=== PATIENT | male | born 1995 | race Two or more races ===

== ENCOUNTER 2023-05-08 22:16 | Emergency (ER) | payer SELFPAY ==
[~2023-05-08] VITALS: Ht 167.6 cm; Wt 79.5 kg
[2023-05-08 22:34] LABS: Basophils # (auto) 0.1 10 ^3/uL (0-0.2); Basophils % (auto) 0.6 % (0.0-2.0); Eosinophils # (auto) 0.1 10 ^3/uL (0-0.8); Eosinophils % (auto) 1.4 % (0.0-7.0); Hematocrit 46.1 % (41.0-53.0); Hemoglobin 15.6 g/dL (13.5-17.5); Lymphocytes # (auto) 3.4 10 ^3/uL (0.4-5.4); Lymphocytes % (auto) 36.2 % (10.0-50.0); Mean Corpuscular Hemoglobin 29.5 pg (28.0-32.0); Mean Corpuscular Hgb Conc. 33.8 g/dL (32.0-36.0); Mean Corpuscular Volume 87.5 fL (80.0-100.0); Monocytes # (auto) 0.7 10 ^3/uL (0-1.3); Monocytes % (auto) 7.8 % (0.0-12.0); Nucleated Red Blood Cells % 0.1 %; Red Blood Cells 5.27 10^6/uL (4.5-5.90); Red Cell Distribution Width 14.3 % (11.8-14.3); White Blood Cell 9.2 10^3/uL (4.4-10.8)
[2023-05-08 22:52] LABS: Albumin 3.8 g/dL (3.4-5.0); Calcium 8.9 mg/dL (8.5-10.1); Magnesium 2.4 mg/dL (1.6-2.6); Potassium 3.2 mmol/L (3.5-5.1)
[2023-05-08 22:54] LABS: BUN/Creatinine Ratio 13.5 (10.0-20.0); Bilirubin, Total 0.5 mg/dL (0.2-1.0)
[2023-05-08 22:55] LABS: INR 0.99 (0.9-1.15); Partial Thromboplastin Time 27.8 SEC (24.5-34.5); Prothrombin Time 10.4 sec (9.3-11.8)
[2023-05-09] MEDS ORDERED: POTASSIUM EFFERVESENT TAB 25 MEQ PO ONE (03:15)
[2023-05-09 03:20] VITALS: BP 130/90; PULSE 65; RESP 16; TEMP 98.2; O2SAT 98
== END 2023-05-09 03:29 | disposition home or self-care (01) ==
LOC: ER 22:18
DX: R07.89 Other chest pain (principal); E87.6 Hypokalemia
CPT/HCPCS: 36415; 71045; 80053; 83735; 83880; 84484; 85025; 85610; 85730; 93005

== ENCOUNTER 2023-12-03 04:16 | Inpatient (IN) | payer SELFPAY ==
[~2023-12-03] VITALS: Ht 167.6 cm; Wt 86.5 kg
[2023-12-03 04:42] VITALS: PULSE 130; RESP 16; O2SAT 98
[2023-12-03 05:05] LABS: Basophils # (auto) 0 10 ^3/uL (0-0.2); Basophils % (auto) 0.5 % (0.0-2.0); Eosinophils # (auto) 0 10 ^3/uL (0-0.8); Lymphocytes # (auto) 1.9 10 ^3/uL (0.4-5.4); Monocytes # (auto) 0.3 10 ^3/uL (0-1.3); Neutrophils # (auto) 4.2 10 ^3/uL (1.6-8.6); Red Cell Distribution Width 13.6 % (11.8-14.3)
[2023-12-03 05:07] LABS: Eosinophils % (auto) 0.4 % (0.0-7.0); Hematocrit 51.8 % (41.0-53.0); Hemoglobin 17.4 g/dL (13.5-17.5); Lymphocytes % (auto) 29.8 % (10.0-50.0); Mean Corpuscular Hemoglobin 28.6 pg (28.0-32.0); Mean Corpuscular Hgb Conc. 33.5 g/dL (32.0-36.0); Mean Corpuscular Volume 85.3 fL (80.0-100.0); Neutrophils % (auto) 64.3 % (37.0-80.0); Nucleated Red Blood Cells % 0.2 %; Red Blood Cells 6.07 10^6/uL (4.5-5.90); White Blood Cell 6.5 10^3/uL (4.4-10.8)
[2023-12-03 05:16] LABS: Amphetamine Screen, Urine Pos (NEGATIVE); Barbiturate Scree,Urine Neg (NEGATIVE); Benzodiazephine Screen, Urine Neg (NEGATIVE); Cocaine Screen, Urine Pos (NEGATIVE); Opiate Scree,Urine Neg (NEGATIVE)
[2023-12-03 05:17] LABS: Cannabinoid Screen, Urine Neg (NEGATIVE); Phencyclidine Screen, Urine Neg (NEGATIVE); Urine Bacteria NONE SEEN /hpf (None Seen); Urine Blood Negative /uL (Negative); Urine Clarity Clear (Clear); Urine Color Colorless (Yellow); Urine Protein, UAD Negative (Negative); Urine Urobilinogen Normal (Negative); Urine WBC <1 /hpf (0 - 3)
[2023-12-03] MEDS: NALOXONE HCL 0.4 MG/ML VIAL IV ONE (05:17)
[2023-12-03] MEDS: NALOXONE HCL 0.4 MG/ML VIAL ONE (05:18)
[2023-12-03 05:20] LABS: Alanine Aminotransferase 58 U/L (7-40); Albumin 5.3 g/dL (3.2-4.8); Alkaline Phosphatase 98 U/L (46-116); Anion Gap 13 (5-15); Aspartate Aminotransferase 29 U/L (13-40); BUN/Creatinine Ratio 8.3 (10.0-20.0); Bilirubin, Total 0.6 mg/dL (0.2-1.0); Blood Alcohol 133.7 mg/dL (<10); Blood Urea Nitrogen 8 mg/dL (9-23); Calcium 9.9 mg/dL (8.5-10.1); Carbon Dioxide 22 mmol/L (20-30); Chloride 103 mmol/L (98-107); Glucose 188 mg/dL (74-106); Potassium 2.5 mmol/L (3.5-5.1); Sodium 138 mmol/L (136-145)
[2023-12-03 05:21] LABS: Total Protein 8.5 g/dL (5.7-8.2)
[2023-12-03] MEDS: SODIUM CHLORIDE 0.9% 1,000 ML IV ONE ×2 (06:06→06:45)
[2023-12-03] MEDS: POTASSIUM EFFERVESENT TAB 25 MEQ PO ONE (06:41)
[2023-12-03] MEDS: POTASSIUM CHL 20MEQ/100ML 100 ML IV SCH (06:45)
[2023-12-03] MEDS: LORazepam 2MG/ML-1ML VIAL IV ONE (08:41)
[2023-12-03 08:49] VITALS: PULSE 140; RESP 13; O2SAT 98
[2023-12-03] MEDS ORDERED: ACETAMINOPHEN 325 MG TAB PO PRN (09:45)
[2023-12-03] MEDS ORDERED: DOCUSATE SOD 100 MG CAP PO PRN (09:45)
[2023-12-03] MEDS ORDERED: NITROGLYCERIN 0.4 MG SL TAB SL PRN (09:45)
[2023-12-03] MEDS ORDERED: ONDANSETRON HCL 4 MG/2 ML VIAL IV PRN (09:45)
[2023-12-03] MEDS ORDERED: MORPHINE SULFATE INJ 2 MG/ml SYRG IV PRN (09:45)
[2023-12-03] MEDS ORDERED: DEXTROSE (50%) 50ML SYRG IV PRN (09:45)
[2023-12-03] MEDS ORDERED: LORazepam 2MG/ML-1ML VIAL IV PRN (09:45)
[2023-12-03] MEDS: SODIUM CHLORIDE 0.9% 1,000 ML IV SCH (09:56)
[2023-12-03] MEDS: FOLIC ACID 1 MG TAB PO SCH (10:07)
[2023-12-03] MEDS: MULTIPLE VITAMIN TAB PO SCH (10:07)
[2023-12-03] MEDS: ASPirin-EC 81 mg tab PO SCH (10:07)
[2023-12-03] MEDS: THIAMINE HCL 100 MG TAB PO SCH (10:07)
[2023-12-03] MEDS: ACCU-CHEK COMFORT CURVE STRIP VI SCH (11:36)
[2023-12-03] MEDS: InsuLIN REG 1unit/0.01ml Soln (100units/ml) SC SCH (11:46)
[2023-12-03 19:30] VITALS: PULSE 113; RESP 19; O2SAT 98
[2023-12-03 22:00] VITALS: BP 124/74; PULSE 106; RESP 14; TEMP 99.5; O2SAT 96
[2023-12-03 22:10] VITALS: PULSE 88; RESP 17; O2SAT 97
[2023-12-03] MEDS: ATORVASTATIN 20 MG TAB PO SCH (23:03)
[2023-12-04 04:48] VITALS: BP 123/74; PULSE 78; RESP 16; TEMP 98.3; O2SAT 98
[2023-12-04 05:07] LABS: Chloride 108 mmol/L (98-107); Potassium 3.8 mmol/L (3.5-5.1); Sodium 140 mmol/L (136-145)
[2023-12-04 05:08] LABS: Anion Gap 6 (5-15); Carbon Dioxide 26 mmol/L (20-30)
[2023-12-04 05:13] LABS: BUN/Creatinine Ratio 9.6 (10.0-20.0); Blood Urea Nitrogen 8 mg/dL (9-23); Glucose 94 mg/dL (74-106); Triglycerides 138 mg/dL (< 150)
[2023-12-04 05:14] LABS: LDL Cholesterol 165 mg/dL (< 100)
[2023-12-04 05:15] LABS: Cholesterol 220 mg/dL (< 200); HDL Cholesterol 45 mg/dL (40-59)
[2023-12-04 08:00] VITALS: PULSE 65
[2023-12-04 09:00] VITALS: BP 109/74; PULSE 68; RESP 18; TEMP 97.8; O2SAT 100
[2023-12-04 10:44] LABS: Free T3 4.14 pg/mL (2.3-4.2); Free T4 (Free Thyroxine) 1.45 ng/dL (0.89-1.76)
[2023-12-04 12:36] VITALS: BP 109/65; PULSE 78; RESP 20; TEMP 98.5; O2SAT 96
[2023-12-04 17:00] VITALS: BP 100/61; PULSE 68; RESP 18; TEMP 98; O2SAT 99
== END 2023-12-04 17:15 | disposition home or self-care (01) | DRG 313 ==
LOC: ER 04:16 → TELE 09:44 → TELE-CENTR 21:35
PROVIDERS: ADMIT Internal Medicine Pulmonary Disease; ATTEND Internal Medicine Pulmonary Disease
DX: R07.89 Other chest pain (principal); R00.2 Palpitations; F15.10 Other stimulant abuse, uncomplicated; E87.6 Hypokalemia; E78.5 Hyperlipidemia, unspecified; F10.10 Alcohol abuse, uncomplicated; R73.03 Prediabetes; F14.120 Cocaine abuse with intoxication, uncomplicated; F15.120 Other stimulant abuse with intoxication, uncomplicated; E66.9 Obesity, unspecified; Z68.30 Body mass index [BMI] 30.0-30.9, adult
CPT/HCPCS: 36415; 70450; 71045; 80048; 80053; 80061; 80307; 80320; 81001; 82962; 83036; 83735; 84132; 84439; 84443; 84481; 84484; 85025; G0378; J1815; J3480